=== PATIENT | male | born 1995 | race Two or more races ===

== ENCOUNTER 2016-07-18 09:08 | Emergency (ER) | payer OTHER ==
[~2016-07-18] VITALS: Ht 175.3 cm; Wt 53.5 kg
[2016-07-18 09:22] VITALS: BP 118/62
[2016-07-18] MEDS ORDERED: cefTRIAXone SOD 1,000 MG VL IM ONE (09:45)
[2016-07-18] MEDS ORDERED: methylPREDNISolone SOD SUCC 125 MG/2 ML VL IM ONE (09:45)
[2016-07-18] MEDS ORDERED: IPRATROPIUM BROM 0.5 MG/2.5ML INH SOL NEB ONE (09:45)
[2016-07-18] MEDS ORDERED: ALBUTEROL SULF 2.5 MG/0.5ML(0.5%) NEB SOLN NEB ONE (09:45)
== END 2016-07-18 10:45 | disposition home or self-care (01) ==
LOC: ER 09:09
DX: J45.901 Unspecified asthma with (acute) exacerbation (principal); J20.9 Acute bronchitis, unspecified; F12.10 Cannabis abuse, uncomplicated; F17.210 Nicotine dependence, cigarettes, uncomplicated
CPT/HCPCS: 94640; 96372; 99284; J0696; J2930